=== PATIENT | female | born 1940 | race Caucasian/White ===

== ENCOUNTER → 2016-05-30 | Outpatient (CLI) | payer OTHER ==
[~2016-05-30] MED LIST: ADULT LOW DOSE81 MG PO; ALTACE10 M1 PO; BISOPROLOL FUMAR5 MG PO; CALCIUM 500 +1 EAC5 PO; CEROVITE SENIO1 EACH PO; DICYCLOMINE HCL20 MG PO; ILEVRO1.7 ML OPHTHALMIC; KEFLEX500 MG; LEXAPRO20 MG PO; LIPITOR10 MG PO; MOTION RELIEF25 MG PO; OCUVITE ADULT1 EACH PO; PRED FORTE 1% EY5 M1; PROCHLORPERAZINE5 M1 PO; REFRESH OPTIVE1 EACH OPHTHALMIC; ZYMAXID2.5 ML OPHTHALMIC
[2016-05-30 11:40] LABS: CALCIUM 9.3 mg/dL (8.5-10.1); CREATININE 1.1 mg/dL (0.6-1.3); POTASSIUM 4.3 mmol/L (3.5-5.1)
== END ==
LOC: LABMALL 02:02 → MRI 02:02
PROVIDERS: Internal Medicine
DX: H93.11 Tinnitus, right ear (principal); R42 Dizziness and giddiness; R51 Headache; G31.9 Degenerative disease of nervous system, unspecified

== ENCOUNTER → 2017-02-26 | Outpatient (CLI) | payer OTHER | LOC: CAT 08:48 | DX: R10.31 Right lower quadrant pain (principal) ==

== ENCOUNTER → 2018-12-29 | Outpatient (CLI) | payer OTHER ==
[~2018-12-29] VITALS: Ht 154.9 cm; Wt 69.4 kg
[~2018-12-29] MED LIST changes: -ALTACE10 M1 PO; +CENTRUM SILVER1 EAC5 PO; +FISH OIL 1,0001 EAC9 PO; +PRESERVISION A1 EAC2 PO; +RAMIPRIL2.5 MG PO; +TOPROL XL25 MG PO; +TRAZODONE HCL50 MG PO; +ULTRAM50 MG PO; +VITAMIN B-121000 MC2 PO; +VITAMIN D32000 UNI1 PO; +XANAX 0.25 MG0.25 MG PO
--- NOTE | 2018-12-30 18:06 | PATH ---
[facility] [place] [address] PATHOLOGY RPT PROCEDURE Name: CLEMENCIA SOLIS Room #: REG [facility] M.R.#: [id number] Admission: 12/29/18 Date of : 42 Discharge: Report #: [id number] Path Case #: [id number] [facility] Accession Number: [id number] . 01 Material submitted: . duodenum - BIOPSY DUODENUM R/O SPRUE . 01 Clinical history: . Anemia, hiatal hernia Rule out sprue . 02 Diagnosis: Small bowel mucosa, duodenum rule out sprue, endoscopic biopsy: - No significant diagnostic abnormalities present. - Negative for villous blunting or increase in intraepithelial lymphocytes. . (IUV:mml; 12/30/2018) QLM 12/30/2018 1426 Local . 02 Electronically signed: . Susana Reno MD, Pathologist NPI- [id number] . 01 Gross description: . The specimen is received in formalin, labeled "Clemencia Solis, biopsy duodenum, rule out sprue", are four irregular fragments of sampson soft tissue measuring 0.5 x 0.5 x 0.1 cm in aggregate. Entirely submitted in A1. ([facility]; 12/29/2018) [facility] 12/29/[address] [place] [address] . 02 Pathologist provided ICD-10: K44.9, D64.9 . 02 CPT . 626428 Specimen Comment: A courtesy copy of this report has been sent to Specimen Comment: [phone], . Specimen Comment: Report sent to / DR WATSON Performed at: [address], [place], [place] [id number] MD Martinez Narvaez MD Phone: [phone] Performed at: [address], [place] [id number] MD Susana Reno MD Phone: [phone]
--- NOTE | 2018-12-31 09:23 | P ---
[facility] [place] [address] [address] [place] [address] PROCEDURE REPORT Name: CLEMENCIA SHETTY Room #: REG [facility]#: [id number] Admission: 12/29/18 Attend Phys: Teja Montilla Discharge: Date of : 42 Report #: [id number] THIS REPORT FOR: //name// CC: Teja Schroeder DATE OF SERVICE: 12/29/2018 PROCEDURE PERFORMED: Upper endoscopy with biopsies. HISTORY OF PRESENT ILLNESS: The patient is a 78-year-old female well known to me with a history recently of Hemoccult positive stool and possible anemia. She is on 81 mg aspirin. She denies any dysphagia or odynophagia. No nausea or vomiting. No obvious blood in her stools. She had a colonoscopy by myself on 10/19/2017 showing right hemicolectomy changes. Otherwise, essentially negative. A CT scan of the abdomen and pelvis was essentially negative a month later. Plan is for EGD today. DESCRIPTION OF PROCEDURE: The risks and benefits of the procedure were explained to the patient, those risks including but not limited to bleeding, perforation and the risk of sedation. She understood these risks and gave informed consent. Sedation was given using propofol per anesthesia. Next, using a standard Olympus upper endoscope, the scope was placed in the patient's mouth and advanced under direct vision through the esophagus, stomach and into the second portion of the duodenum. The larynx was normal in appearance. The esophagus was normal throughout. The GE junction was normal. Upon entering the stomach, a small hiatal hernia was noted. Overall, the gastric mucosa was normal. The pylorus was normal and patent. The duodenal bulb, first and second portion were all normal. Random biopsies of the duodenum were obtained to rule out the possibility of celiac sprue. The scope was then withdrawn and the procedure terminated. The patient tolerated the procedure well. IMPRESSION: 1. Small hiatal hernia. 2. Otherwise, normal upper endoscopy. RECOMMENDATIONS: 1. Await biopsy results. 2. Would monitor hemoglobin. If she has drop in hemoglobin over time, could consider M2a capsule endoscopy of the small bowel at that point. [facility] [address] [place] [address] PROCEDURE REPORT Name: CLEMENCIA SHETTY Room #: REG [facility]#: [id number] Admission: 12/29/18 Attend Phys: Teja Montilla Discharge: Date of : 42 Report #: [id number] Thank you for allowing me to participate in her care. <ELECTRONICALLY SIGNED> By: Teja Gordon MD 12/31/18 0923 1044 1805 Teja Gordon MD /nt
== END | disposition home or self-care (01) ==
LOC: GI 08:30
DX: R19.5 Other fecal abnormalities (principal); K44.9 Diaphragmatic hernia without obstruction or gangrene; I10 Essential (primary) hypertension; E78.00 Pure hypercholesterolemia, unspecified; Z98.0 Intestinal bypass and anastomosis status; Z86.73 Personal history of transient ischemic attack (TIA), and cerebral infarction without residual deficits; Z87.891 Personal history of nicotine dependence; Z85.72 Personal history of non-Hodgkin lymphomas; Z98.890 Other specified postprocedural states; Z98.42 Cataract extraction status, left eye; Z98.41 Cataract extraction status, right eye; Z85.828 Personal history of other malignant neoplasm of skin; Z88.8 Allergy status to other drugs, medicaments and biological substances; Z79.82 Long term (current) use of aspirin; Z79.899 Other long term (current) drug therapy
CPT/HCPCS: 62110; 62900

== ENCOUNTER → 2019-01-19 | Outpatient (CLI) | payer OTHER | END | disposition home or self-care (01) | LOC: GI 06:28 | DX: K55.20 Angiodysplasia of colon without hemorrhage (principal); R19.5 Other fecal abnormalities; Z88.8 Allergy status to other drugs, medicaments and biological substances; Z79.899 Other long term (current) drug therapy; Z98.890 Other specified postprocedural states; Z98.0 Intestinal bypass and anastomosis status ==

== ENCOUNTER → 2019-04-22 | Outpatient (CLI) | payer OTHER | LOC: RAD 12:43 | DX: Z12.31 Encounter for screening mammogram for malignant neoplasm of breast (principal) ==

== ENCOUNTER 2019-05-10 06:58 | Day surgery (SDC) | payer OTHER ==
[~2019-05-10] VITALS: Ht 152.4 cm; Wt 71.7 kg
[~2019-05-10 06:58] MED LIST changes: +CELEXA 10 MG TA10 M1 PO; +DICLOFENAC SOD100 MG PO; +MELATONIN5 M4 PO; +NEURONTIN100 MG PO; -VITAMIN D32000 UNI1 PO; +Vitamin D3 PO
--- NOTE | 2019-05-10 08:32 | EKG ---
[facility] [address] ELECTROCARDIOGRAM REPORT Name: CLEMENCIA SHETTY Room #: 150-2 ADM IN M.R.#: [id number] Admission: 05/10/19 Attend Phys: Joanne Sheppard MD, Discharge: Date of : 42 Report #: [id number] THIS REPORT FOR: cc: Nikko Schroeder MD, Stanley P. MD Lundgren,Andre Mott MD [facility] ~ THIS REPORT FOR: //name// [facility] Test Date: 2019-05-10 Test Time: 07:28:06 Pat Name: CLEMENCIA SHETTY Department: Room: 150 2 Gender: F Refrigerator Repairman: armida : 1940 Requested By: Joanne Sheppard Order Number: [id number] MD: Andre Allred Measurements Intervals [place] Rate: 60 P: 20 ND: 157 QRS: -14 QRSD: 101 T: 22 QT: 422 QTc: 422 Interpretive Statements Sinus rhythm Abnormal R-wave progression, early transition Compared to ECG 03/21/1999 12:17:00 No significant changes Electronically Signed On 05-10-2019 8:31:49 SENIOR STRATEGY ANALYST by Andre Allred [email or web address] <ELECTRONICALLY SIGNED> By: Andre Allred MD, [facility] 05/10/19 0831 7 Andre Allred MD, [facility] /EPI
[2019-05-10 08:46] VITALS: BP 131/54
[2019-05-10] MEDS ORDERED: ROXICODONE5 M2 PO (11:10)
[2019-05-10] MEDS ORDERED: NEURONTIN300 MG PO (11:10)
[2019-05-10] MEDS ORDERED: IBUPROFEN 800800 M1 PO (11:10)
[2019-05-10 11:16] VITALS: BP 131/54
--- NOTE | 2019-05-19 12:44 | O ---
[facility] [place] [address] [place] [address] OPERATIVE REPORT Name: CLEMENCIA SHETTY Room #: DEP [facility].#: [id number] Admission: 05/10/19 Attend Phys: Joanne Sheppard MD, Discharge: 05/10/19 Date of : 42 Report #: [id number] THIS REPORT FOR: cc: Nikko Schroeder MD, Stanley P. MD Soliman,Joanne Lopez MD [facility] ~ CC: Joanne Schroeder DATE OF SERVICE: 05/10/2019 PREOPERATIVE DIAGNOSES: Incarcerated recurrent incisional ventral hernia. POSTOPERATIVE DIAGNOSES: 1. Incarcerated recurrent incisional ventral hernias. 2. Intraabdominal adhesions. PROCEDURES PERFORMED: 1. Laparoscopic repair of an incarcerated recurrent incisional ventral hernia with mesh. 2. Laparoscopic lysis of adhesions. SURGEON: Joanne Sheppard MD CRM MARKETING ANALYST: MITESH Acevedo. ANESTHESIA: General endotracheal anesthesia. ESTIMATED BLOOD LOSS: Minimal (less than 5 mL). COMPLICATIONS: None appreciated. SPECIMENS: None. INDICATIONS: The patient is a 78-year-old female who presented with a history of prior partial colectomy as well as a recurrent hernia repair with mesh, who has shown evidence of recurrent bulging and discomfort throughout the midline of her abdominal domain. On physical exam, the patient clearly has evidence of a recurrent incisional hernia and on CT scan imaging, she has a loop of small bowel contained within her recurrent incisional hernia defect. As such, indication was for the above-mentioned procedure today. DESCRIPTION OF PROCEDURE: After explaining the risks, benefits and alternatives of the procedure with the patient in detail and obtaining consent, the patient was brought to the operating room and placed supine on the operating room table. After conducting a thorough timeout procedure verifying correct patient and [address] [place] [address] OPERATIVE REPORT Name: CLEMENCIA SHETTY Room #: DEP [facility]..#: [id number] Admission: 05/10/19 Attend Phys: Joanne Sheppard MD, Discharge: 05/10/19 Date of : 42 Report #: [id number] procedure, the patient was given general endotracheal anesthesia. Once adequate anesthesia was obtained, her SCDs were hooked up to pneumatic compression device and she was given a preoperative dose of antibiotics in line with the SCIP protocol. The patient's abdomen was prepped and draped in standard surgical sterile fashion. A 5 mL of 0.5% Marcaine with epinephrine were used to anesthetize the skin in the left upper quadrant midclavicular line in subcostal location. A #15 bladed scalpel was used to create a small skin jerilyn at this location. A 5 mm Visiport was placed over 0 degree 5 mm laparoscope and was introduced through this incision site. Once intra-abdominal placement was verified visually, the obturator for the trocar and laparoscope were both removed and the abdomen was insufflated to 15 mmHg using carbon dioxide gas. The laparoscope was changed to a 5-mm 30-degree laparoscope, which was reintroduced through this trocar. The entire abdomen was evaluated to ensure no injury upon entry. The left lateral abdomen was devoid of adhesions and as such, I was able to place a 12 mm port lateral to the umbilicus in the anterior axillary line and an additional 5 mm port in left lower quadrant. Both additional ports were placed under direct vision after anesthetizing the skin at each location with 5 mL of 0.5% Marcaine with epinephrine and created appropriately sized skin nicks using #15 bladed scalpel. The laparoscope was removed, changed to the 12 mm port where I proceeded to enact a lengthy laparoscopic lysis of adhesions lasting greater than 30 minutes using EndoShears to take down all adhesions from the posterior aspect of the anterior abdominal wall. Luckily with the exception of the incarcerated loop of small bowel within the hernia defect, these were primarily omental adhesions at the location of the incarcerated bowel. Luckily, it was not stuck. I was able to reduce this with gentle traction and external manual pressure and there was a clear plane of the filmy adhesion tissue between the bowel and the hernia sac. This was taken down sharply with EndoShears staying well away from the bowel wall at all times. Once I had cleared off the entire abdominal wall, the hernia defect was evaluated. It measured 5 x 5 cm in dimension. A small stab incision was made overlying the hernia defect with a #15 bladed scalpel. A #1 PDS suture on the Paxton-Edmundo suture passer device was used to place three separate loufic-dl-zohbg sutures around the hernia defect itself. These were not tied down, but were tagged with hemostat and the piece of Ventralight ST mesh on the echo positioning system measuring 20 x 15 cm in dimension. This would give us 5 cm overlap in all directions outside the hernia defect in question. This was rolled up, placed into the intra-abdominal space. The Paxton-Edmundo suture passer device was driven directly through the anterior abdominal wall, again through the center most portion of the defect, whereby the end eyelet of the balloon insufflation tubing was grasped, pulled up through the abdominal wall, cut off and passed off the field. The syringe insufflator was now attached to the balloon insufflation tubing and the echo scaffolding was fully inflated. This was not pulled up tight to the abdominal wall. However, the insufflation pressure was reduced to 8 mmHg and each of the lovaie-xl-zfokg sutures were now tied down completely repairing the defect. I now pulled up on the balloon tubing which held the entire mesh in close approximation with the posterior [facility] [address] [place] [address] OPERATIVE REPORT Name: SHETTYCLEMENCIA Room #: DEP [facility]..#: [id number] Admission: 05/10/19 Attend Phys: Joanne Sheppard MD, Discharge: 05/10/19 Date of : 42 Report #: [id number] aspect of the anterior abdominal wall. This was tagged with hemostat externally. The mesh was now fixed into position using the secure strap absorbable fixation device at 1 cm intervals around the periphery of the mesh as well as placing numerous tacks throughout the innermost portion of the mesh as well to hold the entire mesh in close approximation with the posterior aspect of the anterior abdominal wall throughout. The balloon insufflation tubing was now cut, releasing the echo scaffolding, which was removed via the 12 mm port. The laparoscope was placed back in the left upper quadrant trocar and I closed the 12 mm fascial incision using 0 PDS suture on the Paxton-Edmundo suture passer device. This was done under direct vision was tied down under direct vision to ensure I did not catch a loop of bowel or omentum in the suture repair. One final evaluation of the intra-abdominal domain showed no further evidence of pathology and the hernia repair appeared to be intact with excellent overlap of the mesh outside the hernia defect in question. The abdomen was now fully desufflated. All trocars removed under direct vision. A 4-0 Monocryl was used in a standard subcuticular fashion for all skin incisions and Dermabond glue was applied to all skin wounds. At the end of the procedure, all instrument, needle and sponge counts were correct. The patient tolerated the procedure without incident, was awakened in the operating room, transitioned to the recovery room in stable condition with no apparent complications. <ELECTRONICALLY SIGNED> By: Joanne Sheppard MD, FACS 05/19/19 1244 0923 [id number] Joanne Sheppard MD, FACS /nt
== END 2019-05-10 12:25 | disposition home or self-care (01) ==
LOC: TBA 06:58 → PRE 06:58 → OR 06:58 → PRE 07:04 → OR 12:25 → TBA 12:25 → EDSTATUS 16:06
DX: K43.0 Incisional hernia with obstruction, without gangrene (principal); K66.0 Peritoneal adhesions (postprocedural) (postinfection); I10 Essential (primary) hypertension; M81.0 Age-related osteoporosis without current pathological fracture; K44.9 Diaphragmatic hernia without obstruction or gangrene; E78.5 Hyperlipidemia, unspecified; Z98.890 Other specified postprocedural states; Z79.899 Other long term (current) drug therapy; Z90.49 Acquired absence of other specified parts of digestive tract; Z85.72 Personal history of non-Hodgkin lymphomas; Z90.710 Acquired absence of both cervix and uterus; Z79.82 Long term (current) use of aspirin; Z79.891 Long term (current) use of opiate analgesic; Z88.8 Allergy status to other drugs, medicaments and biological substances
CPT/HCPCS: 50010; 50101; 50249; 50386; 50455; 50555; 50558; 50859; 50984; 52265; 53307; 54022; 54118; 56462; 56525; 56526; 57092; 62110; 62900; 70005

== ENCOUNTER → 2019-08-24 | Outpatient (CLI) | payer OTHER ==
[~2019-08-24] MED LIST changes: +IBUPROFEN 800800 M1 PO; +NEURONTIN300 MG PO; +ROXICODONE5 M2 PO
== END ==
LOC: SJCVCIMAG 09:38
PROVIDERS: ATTEND Internal Medicine Cardiovascular Disease
DX: R94.31 Abnormal electrocardiogram [ECG] [EKG] (principal); I47.1 Supraventricular tachycardia; E78.00 Pure hypercholesterolemia, unspecified; I12.9 Hypertensive chronic kidney disease with stage 1 through stage 4 chronic kidney disease, or unspecified chronic kidney disease; N18.3 Chronic kidney disease, stage 3 (moderate); Z79.899 Other long term (current) drug therapy

== ENCOUNTER → 2020-06-11 | Outpatient (CLI) | payer OTHER | LOC: SJCVCIMAG 08:37 | PROVIDERS: ATTEND Internal Medicine Cardiovascular Disease | DX: I10 Essential (primary) hypertension (principal); E78.5 Hyperlipidemia, unspecified; R06.00 Dyspnea, unspecified; R53.83 Other fatigue; I47.9 Paroxysmal tachycardia, unspecified ==

== ENCOUNTER → 2020-06-18 | Outpatient (CLI) | payer OTHER | LOC: RAD 08:20 | PROVIDERS: ATTEND Internal Medicine | DX: Z12.31 Encounter for screening mammogram for malignant neoplasm of breast (principal) ==

== ENCOUNTER → 2020-06-27 | Outpatient (CLI) | payer OTHER | LOC: ULTRA 09:07 | PROVIDERS: ATTEND Internal Medicine | DX: N60.02 Solitary cyst of left breast (principal) ==

== ENCOUNTER → 2021-03-20 | Outpatient (CLI) | payer OTHER | LOC: SJCVC 10:52 | PROVIDERS: ATTEND Internal Medicine Cardiovascular Disease | DX: R94.31 Abnormal electrocardiogram [ECG] [EKG] (principal); I10 Essential (primary) hypertension; E78.00 Pure hypercholesterolemia, unspecified; I47.1 Supraventricular tachycardia; R00.2 Palpitations; Z87.891 Personal history of nicotine dependence; Z79.82 Long term (current) use of aspirin; Z79.899 Other long term (current) drug therapy; Z88.8 Allergy status to other drugs, medicaments and biological substances; Z82.49 Family history of ischemic heart disease and other diseases of the circulatory system ==